=== PATIENT | female | born 1955 | race Caucasian/White ===

== ENCOUNTER → 2017-09-05 07:01 | Outpatient (CLI) | payer OTHER, BC, SELFPAY ==
[2017-09-05 09:19] LABS: Add Manual Diff / Slide Review NO; Eosinophils Percent Auto 2.3 % (2-4); Hemoglobin 15.3 g/dL (12.0-16.0); Lymphocytes Percent Auto 30.1 % (25-40); Mean Corpuscular HGB Conc 33.9 % (30-36); Mean Corpuscular Hemoglobin 28.9 PG (26-34); Mean Corpuscular Volume 85.3 fL (80-100); Monocytes Percent Auto 8.1 % (3-14); Neutrophils Absolute Auto 3700 /uL (3000-5900); Neutrophils Percent Auto 58.5 % (50-75); Platelet Count 242 X10^3/uL (150-400); Red Blood Cell Count 5.28 X10^6/uL (4.0-5.2); Red Cell Distribution Width 13.3 % (11.6-14.8); White Blood Cell Count 6.4 X10^3/uL (4.5-11.0)
[2017-09-05 09:38] LABS: Alanine Aminotransferase 33 IU/L (9-52); Albumin 4.3 g/dL (3.5-5.0); Albumin Globulin Ratio 1.4 (1.0-2.8); Alkaline Phosphatase 94 U/L (38-126); Aspartate Aminotransferase 36 IU/L (14-36); BUN Creatinine Ratio 15.7 (6-22); Bilirubin Total 1.2 mg/dL (0.2-1.3); Blood Urea Nitrogen 11 mg/dL (7-17); Calcium 9.2 mg/dL (8.4-10.2); Carbon Dioxide 31 mmol/L (22-32); Chloride 96 mmol/L (98-107); Cholesterol 187 mg/dL (140-199); Estimated Glomerular Filt Rate > 60.0 mL/min (>60); Glucose 86 mg/dL (80-110); HDL Cholesterol 63 mg/dL (40-60); HEMOLYSIS < 15 (0-50); LDL Cholesterol Calculated 109 mg/dL (<100); Potassium 4.6 mmol/L (3.4-5.1); Sodium 136 mmol/L (137-145); Total Protein 7.3 g/dL (6.3-8.2); Triglycerides 75 mg/dL (35-150)
[2017-09-05 10:07] LABS: Testosterone 28.1 ng/dL (5.71-77.0)
[2017-09-05 10:10] LABS: Thyroid Stimulating Hormone 5.09 uIU/mL (0.47-4.68)
[2017-09-11 14:31] LABS: Estrogen 97.2 pg/mL
== END ==
PROVIDERS: Visit Provider Family Medicine
DX: Z78.0 Asymptomatic menopausal state (principal)
CPT/HCPCS: 36415; 80053; 80061; 82672; 84403; 84443; 85025

== ENCOUNTER → 2017-09-16 06:49 | Outpatient (CLI) | payer OTHER, BC, SELFPAY ==
[2017-09-16 10:14] LABS: Free T3, Triiodothyronine Free 3.01 pg/mL (2.77-5.27); Free T4, Direct Thyroxine 1.28 ng/dL (0.78-2.19)
[2017-09-16 10:28] LABS: Thyroid Stimulating Hormone 5.32 uIU/mL (0.47-4.68)
== END ==
PROVIDERS: PCP Physician Assistant Medical; Visit Provider Family Medicine
DX: R79.89 Other specified abnormal findings of blood chemistry (principal)
CPT/HCPCS: 36415; 84439; 84443; 84481

== ENCOUNTER → 2020-01-21 08:17 | Outpatient (CLI) | payer BC, SELFPAY ==
[2020-01-21 08:52] LABS: Appearance Urine UA CLEAR; Bilirubin Urine UA NEGATIVE (NEGATIVE); Color Urine UA YELLOW; Glucose Urine UA NEGATIVE (Negative); Ketones Urine UA NEGATIVE (NEGATIVE); Leukocyte Esterase Urine UA NEGATIVE (NEGATIVE); Nitrite Urine UA NEGATIVE (Negative); Occult Blood Urine UA TRACE-LYSED (Negative); Protein Urine UA TRACE (Negative); Specific Gravity Urine UA 1.015 (1.000-1.035); Urobilinogen Urine UA 0.2 E.U./dL (0.2)
[2020-01-21 08:55] LABS: Add Manual Diff / Slide Review NO; Basophils Absolute Auto 100 /uL (0-100); Basophils Percent Auto 0.7 % (0-2); Eosinophils Absolute Auto 100 /uL (0-450); Hematocrit 40.5 % (36-46); Hemoglobin 13.8 g/dL (12.0-16.0); Lymphocytes Absolute Auto 1400 /uL (1100-4500); Lymphocytes Percent Auto 14.9 % (25-40); Mean Corpuscular HGB Conc 34.1 % (30-36); Mean Corpuscular Hemoglobin 28.9 PG (26-34); Mean Corpuscular Volume 84.8 fL (80-100); Monocytes Absolute Auto 700 /uL (0-900); Monocytes Percent Auto 8.1 % (3-14); Neutrophils Absolute Auto 6900 /uL (1500-7000); Neutrophils Percent Auto 75.3 % (50-75); Platelet Count 273 X10^3/uL (150-400); Red Blood Cell Count 4.77 X10^6/uL (4.0-5.2); Red Cell Distribution Width 12.6 % (11.6-14.8); White Blood Cell Count 9.2 X10^3/uL (4.5-11.0)
[2020-01-21 09:38] LABS: Alanine Aminotransferase 11 IU/L (<35); Albumin 3.7 g/dL (3.5-5.0); Albumin Globulin Ratio 1.3 (1.0-2.8); Alkaline Phosphatase 105 U/L (38-126); Aspartate Aminotransferase 24 IU/L (14-36); BUN Creatinine Ratio 13.2 (6-22); Blood Urea Nitrogen 7 mg/dL (7-17); Calcium 8.8 mg/dL (8.4-10.2); Carbon Dioxide 33 mmol/L (22-32); Chloride 97 mmol/L (98-107); Cholesterol 141 mg/dL (140-199); Estimated Glomerular Filt Rate > 60.0 mL/min (>60); Globulin 2.8 g/dL (1.7-4.1); Glucose 103 mg/dL (80-110); HDL Cholesterol 50 mg/dL (40-60); HEMOLYSIS < 15 (0-50); LDL Cholesterol Calculated 77 mg/dL (<100); Potassium 3.9 mmol/L (3.4-5.1); Sodium 133 mmol/L (137-145); Total Protein 6.5 g/dL (6.3-8.2); Triglycerides 69 mg/dL (35-150)
[2020-01-21 10:00] LABS: TSH w/ Reflex to FT4 4.13 uIU/mL (0.47-4.68)
== END ==
PROVIDERS: Family Provider Physician Assistant Medical; PCP Registered Nurse; Referring Provider Registered Nurse; Visit Provider Registered Nurse
DX: Z00.00 Encounter for general adult medical examination without abnormal findings (principal); E78.5 Hyperlipidemia, unspecified; R79.89 Other specified abnormal findings of blood chemistry
CPT/HCPCS: 36415; 80053; 80061; 81003; 84443; 85025

== ENCOUNTER → 2020-02-02 10:43 | Outpatient (CLI) | payer BC, SELFPAY ==
--- NOTE | 2020-02-02 10:46 | DI.RAD.S_ITS ---
PROCEDURE: XR KNEE RT 3V INDICATIONS: CHRONIC left knee pain TECHNIQUE: 3 views of the knee were acquired. COMPARISON: Left knee same day reviewed. FINDINGS: Bones: No fractures or dislocations, and the degree of degenerative osteoarthritic change as indicated by joint space narrowing at the medial and lateral compartment is symmetric with that on the left. The patellofemoral joint also shows prominent lateral facet patellofemoral joint space narrowing, but not to the same severity as that seen on the left.. No suspicious bony lesions. Soft tissues: No joint effusion. No suspicious soft tissue calcifications. IMPRESSION: Near equivalent degenerative osteoarthritis at the right knee compared to the left knee except at the lateral facet of the patellofemoral joint where a lesser degree of degeneration is present. Dictated by: Ricardo Espana M.D. on 02/02/2020 at 11:23 Approved by: Ricardo Espana M.D. on 02/02/2020 at 11:24
--- NOTE | 2020-02-02 10:46 | DI.RAD.S_ITS ---
PROCEDURE: XR KNEE LT 3V INDICATIONS: CHRONIC LEFT KNEE PAIN TECHNIQUE: 3 views of the knee were acquired. COMPARISON: None. FINDINGS: Bones: No fractures or dislocations but there is [id number] degenerative knee joint space narrowing at the lateral/medial compartment respectively, and moderately severe to severe such degeneration at the lateral facet of the patellofemoral joint.. No suspicious bony lesions. Soft tissues: No joint effusion. No suspicious soft tissue calcifications. IMPRESSION: There is quite severe osteoarthritis at the patellofemoral joint lateral facet, but only mild lateral and moderate medial joint space narrowing on the frontal projection. No trauma found. Dictated by: Ricardo Espana M.D. on 02/02/2020 at 11:22 Approved by: Ricardo Espana M.D. on 02/02/2020 at 11:23
== END ==
PROVIDERS: Family Provider Physician Assistant Medical; PCP Registered Nurse; Referring Provider Registered Nurse; Visit Provider Registered Nurse
DX: M25.562 Pain in left knee (principal); M25.561 Pain in right knee; M17.0 Bilateral primary osteoarthritis of knee; G89.29 Other chronic pain
CPT/HCPCS: 73562

== ENCOUNTER → 2020-03-28 10:37 | Outpatient (CLI) | payer BC, SELFPAY | PROVIDERS: Family Provider Physician Assistant Medical; PCP Registered Nurse; Referring Provider Registered Nurse; Visit Provider Internal Medicine Rheumatology | DX: Z20.5 Contact with and (suspected) exposure to viral hepatitis (principal); M05.9 Rheumatoid arthritis with rheumatoid factor, unspecified | CPT/HCPCS: 36415; 87517 ==

== ENCOUNTER → 2020-09-02 11:02 | Outpatient (CLI) | payer BC, SELFPAY ==
--- NOTE | 2020-09-02 11:05 | DI.RAD.S_ITS ---
PROCEDURE: XR KNEE RT 3V INDICATIONS: BILATERAL KNEE PAIN TECHNIQUE: 3 views of the knee were acquired. COMPARISON: [facility], , XR KNEE RT 3V, 02/02/2020, 10:51. FINDINGS: Bones: No fractures or dislocations. No suspicious bony lesions. Tricompartment degenerative arthritis with tricompartment osteophytes, moderate medial compartment joint space loss, and lateral patellofemoral joint space obliteration. Findings are progressive. Soft tissues: No joint effusion. No suspicious soft tissue calcifications. IMPRESSION: Progressive tricompartment degenerative arthritis as described above. Dictated by: Kole Espinoza M.D. on 09/02/2020 at 13:29 Approved by: Kole Espinoza M.D. on 09/02/2020 at 13:31
--- NOTE | 2020-09-02 11:05 | DI.RAD.S_ITS ---
PROCEDURE: XR KNEE LT 3V INDICATIONS: BILATERAL KNEE PAIN TECHNIQUE: 3 views of the knee were acquired. COMPARISON: [facility], CR, XR KNEE LT 3V, 02/02/2020, 10:51. [facility], CR, XR KNEE RT 3V, 02/02/2020, 10:51. FINDINGS: Bones: No fractures or dislocations. No suspicious bony lesions. Progressive tricompartment degenerative arthritis with increase in medial compartment joint space loss, moderate, and increase in lateral patellofemoral joint space loss, with obliteration of the joint space. Soft tissues: [id number] joint effusion. No suspicious soft tissue calcifications. IMPRESSION: Interval progression of degenerative arthritis of the knee as described above. Dictated by: Kole Espinoza M.D. on 09/02/2020 at 13:32 Approved by: Kole Espinoza M.D. on 09/02/2020 at 13:33
== END ==
PROVIDERS: Family Provider Physician Assistant Medical; PCP Registered Nurse; Referring Provider Internal Medicine Rheumatology; Visit Provider Internal Medicine Rheumatology
DX: M25.561 Pain in right knee (principal); M25.562 Pain in left knee; M17.0 Bilateral primary osteoarthritis of knee
CPT/HCPCS: 73562

== ENCOUNTER → 2021-01-04 18:55 | Outpatient (CLI) | payer BC, SELFPAY ==
--- NOTE | 2021-01-04 | DI.MRI.S_ITS ---
PROCEDURE: MR KNEE RT WO CON INDICATIONS: pain in right knee TECHNIQUE: Noncontrast sagittal PD fast spin echo and T2 fast spin echo with fat saturation, sagittal 3-D FLASH with fat saturation; coronal T1 spin echo and PD fast spin echo with fat saturation, and axial PD fast spin echo with fat saturation through the knee. COMPARISON: [facility], CR, XR KNEE LT 3V, 09/02/2020, 11:25. FINDINGS: Image quality: Excellent. Menisci: Oblique tear involving posterior horn of medial meniscus extending to inferior articulating surface is seen. Peripheral displacement of medial meniscus bowing medial collateral ligament is also noted. There is no evidence of focal lateral meniscal tear. The meniscal root ligaments appear intact. Cruciate ligaments: The anterior and posterior cruciate ligaments appear intact. Medial structures: Low-grade proximal MCL sprain/partial-thickness tear is seen. The posterior oblique ligament, semimembranosus tendon insertions, oblique popliteal ligament, and meniscocapsular junction appear intact. Visualized portions of the pes anserinus tendons appear normal. No abnormal bursal fluid. Lateral structures: There is low-grade proximal LCL sprain/partial-thickness tear. The long and short heads of the biceps femoris tendon appear intact. The popliteus tendon appears normal; the popliteofibular ligament appears intact. The posterosuperior and anteroinferior popliteomeniscal fascicles appear intact. The arcuate and fabellofibular ligaments appear intact, on either side of the lateral inferior geniculate artery. Iliotibial band appears normal. Anterior structures: Distal quadriceps tendinosis at its superior patellar insertion is seen. Proximal patellar tendinosis at its inferior patellar insertion is also noted. Patellar alignment is normal. No femoral trochlear dysplasia or ventral trochlear prominence. No edema in the infrapatellar fat pad. Bones and cartilage: Moderate tricompartmental osteoarthritis and chondromalacia is noted most prominent in medial femoral tibial compartment. Mild marrow edema involving lateral periphery of lateral femoral condyle and proximal tibia is seen without discrete fracture line. Mild oedema involving antral medial periphery of proximal tibia extending to anterior aspect of medial tibial plateau is also seen without discrete fracture line. Joint space: There is large amount of joint fluid, no gross intra-articular loose body. Lobulated popliteal cyst is seen measures up to 4.4 x 2.1 x 3.8 cm in size. Thickened synovial lining is seen suggestive of mild synovitis. IMPRESSION: 1. Moderate tricompartmental osteoarthritis and chondromalacia more prominent in medial femoral tibial compartment. No fracture or dislocation. Suggestion of bony contusion involving medial and lateral periphery of right knee as above. 2. Moderate to large joint effusion with thickened synovial lining suggestive of synovitis. No definite intra-articular loose body. Moderate size popliteal cyst as above. 3. Oblique tear involving posterior horn of medial meniscus extending to inferior articulating surface. No definite focal lateral meniscal tear. 4. Low-grade proximal MCL and LCL sprain/partial-thickness tear. Cruciate ligaments are intact. 5. Distal quadriceps and proximal patellar tendinosis at their patellar insertions. Dictated by: Wander Lim M.D. on 01/05/2021 at 9:02 Approved by: Wander Lim M.D. on 01/05/2021 at 9:06
== END ==
PROVIDERS: Family Provider Physician Assistant Medical; PCP Registered Nurse; Referring Provider Internal Medicine Rheumatology; Visit Provider Internal Medicine Rheumatology
DX: M25.561 Pain in right knee (principal); M17.11 Unilateral primary osteoarthritis, right knee; M94.261 Chondromalacia, right knee; M25.461 Effusion, right knee; S83.241A Other tear of medial meniscus, current injury, right knee, initial encounter; M71.21 Synovial cyst of popliteal space [Baker], right knee; S83.411A Sprain of medial collateral ligament of right knee, initial encounter; S83.421A Sprain of lateral collateral ligament of right knee, initial encounter
CPT/HCPCS: 73721

== ENCOUNTER → 2022-05-17 06:53 | Outpatient (CLI) | payer BC, SELFPAY ==
[2022-05-17 09:48] LABS: Alanine Aminotransferase 14 IU/L (<35); Albumin 3.6 g/dL (3.5-5.0); Albumin Globulin Ratio 1.2 (1.0-2.8); Alkaline Phosphatase 121 U/L (38-126); Aspartate Aminotransferase 27 IU/L (14-36); Bilirubin Total 0.8 mg/dL (0.2-1.3); Bilirubin Unconjugated 0.5 mg/dL (0.0-1.1); Globulin 3.1 g/dL (1.7-4.1); HEMOLYSIS < 15 (0-50); Total Protein 6.7 g/dL (6.3-8.2)
[2022-05-17 10:02] LABS: Vitamin D 25 Hydroxy (D3) 47.2 ng/mL (30.0-100.0)
== END ==
PROVIDERS: Family Provider Physician Assistant Medical; PCP Registered Nurse Diabetes Educator; Referring Provider Registered Nurse Diabetes Educator; Visit Provider Registered Nurse Diabetes Educator
DX: E55.9 Vitamin D deficiency, unspecified (principal); R74.8 Abnormal levels of other serum enzymes
CPT/HCPCS: 36415; 80076; 82306

== ENCOUNTER → 2022-12-06 07:53 | Outpatient (CLI) | payer BC, SELFPAY ==
[2022-12-06 08:12] LABS: Hematocrit 38.6 % (36-46); Mean Corpuscular HGB Conc 33.6 % (30-36); Mean Corpuscular Hemoglobin 26.8 PG (26-34); Mean Corpuscular Volume 79.7 fL (80-100); Platelet Count 301 X10^3/uL (150-400); Red Blood Cell Count 4.84 X10^6/uL (4.0-5.2); White Blood Cell Count 8.5 X10^3/uL (4.5-11.0)
[2022-12-06 08:33] LABS: Alanine Aminotransferase 15 IU/L (<35); Albumin 3.6 g/dL (3.5-5.0); Alkaline Phosphatase 105 U/L (38-126); Aspartate Aminotransferase 27 IU/L (14-36); BUN Creatinine Ratio 14.8 (6-22); Bilirubin Total 0.7 mg/dL (0.2-1.3); Blood Urea Nitrogen 8 mg/dL (7-17); Calcium 8.7 mg/dL (8.4-10.2); Carbon Dioxide 28 mmol/L (22-32); Chloride 97 mmol/L (98-107); Cholesterol 156 mg/dL (140-199); Estimated Glomerular Filt Rate > 60 mL/min (>60); Globulin 3.7 g/dL (1.7-4.1); Glucose 90 mg/dL (80-110); HDL Cholesterol 40 mg/dL (40-60); HEMOLYSIS < 15 (0-50); LDL Cholesterol Calculated 100 mg/dL (<100); Potassium 4.5 mmol/L (3.4-5.1); Sodium 132 mmol/L (137-145); Total Protein 7.3 g/dL (6.3-8.2); Triglycerides 80 mg/dL (35-150)
[2022-12-06 08:57] LABS: TSH w/ Reflex to FT4 3.95 uIU/mL (0.47-4.68)
== END ==
PROVIDERS: Family Provider Physician Assistant Medical; PCP Registered Nurse Diabetes Educator; Referring Provider Registered Nurse Diabetes Educator; Visit Provider Registered Nurse Diabetes Educator
DX: E78.5 Hyperlipidemia, unspecified (principal); M25.561 Pain in right knee; M25.562 Pain in left knee; R79.89 Other specified abnormal findings of blood chemistry
CPT/HCPCS: 36415; 80053; 80061; 84443; 85027

== ENCOUNTER → 2022-12-11 10:52 | Outpatient (CLI) | payer BC, SELFPAY ==
--- NOTE | 2022-12-11 10:53 | DI.RAD.S_ITS ---
PROCEDURE: XR HAND LT MIN 3V INDICATIONS: bilateral 1st CMC joint pain TECHNIQUE: 3 views of the hand(s) acquired. COMPARISON: [facility], CR, XR HAND RT MIN 3V, 12/11/2022, 10:56. FINDINGS: Bones: No fractures or dislocations. Advanced degenerative change at the 1st CMC joint with joint space narrowing, subchondral cystic change, and osteophytosis. Similar to the contralateral right hand. Carpal bones are normally aligned. No suspicious bony lesions. Soft tissues: No suspicious soft tissue calcifications. IMPRESSION: Advanced degenerative change at the 1st CMC joint. Dictated by: Teto Curry M.D. on 12/11/2022 at 16:29 Approved by: Teto Curry M.D. on 12/11/2022 at 16:30
--- NOTE | 2022-12-11 10:53 | DI.RAD.S_ITS ---
PROCEDURE: XR HAND RT MIN 3V INDICATIONS: bilateral 1st CMC joint pain TECHNIQUE: 3 views of the hand(s) acquired. COMPARISON: [facility], CR, XR HAND LT MIN 3V, 12/11/2022, 10:56. FINDINGS: Bones: No fractures or dislocations. Advanced degenerative change at the 1st CMC joint with subchondral cystic change, joint space narrowing and osteophytosis. Carpal bones are normally aligned. No suspicious bony lesions. Soft tissues: No suspicious soft tissue calcifications. IMPRESSION: Advanced degenerative change at the 1st CMC joint. Dictated by: Teto Curry M.D. on 12/11/2022 at 16:28 Approved by: Teto Curry M.D. on 12/11/2022 at 16:29
== END ==
PROVIDERS: Family Provider Physician Assistant Medical; PCP Registered Nurse Diabetes Educator; Referring Provider Registered Nurse Diabetes Educator; Visit Provider Registered Nurse Diabetes Educator
DX: M79.641 Pain in right hand (principal); M79.642 Pain in left hand
CPT/HCPCS: 73130

== ENCOUNTER → 2023-12-12 12:11 | Outpatient (CLI) | payer BC, SELFPAY ==
--- NOTE | 2023-12-12 12:12 | DI.RAD.S_ITS ---
PROCEDURE: XR DEXA AXIAL SKELETON INDICATIONS: Asymptomatic menopausal state COMPARISON: None. FINDINGS: Lumbar Spine: Bone mineral density 0.82 g/cm2, T score -2.1 Left Hip: Bone mineral density 0.72 g/cm2, T score -1.9,. Left Femoral Neck: Bone mineral density 0.61 g/cm2, T score -2.1,. Right Hip: Bone mineral density 0.70 g/cm2, T score -2,. Right Femoral Neck: Bone mineral density 0.61 g/cm2, T score -2.2,. Fracture Risk Calculation (when applicable): 10-year fracture risk of a major osteoporotic fracture 17% and of a hip fracture 3.7%. (T score greater or equal to -1.0 to: NORMAL) (T score from -1.1 to -2.4: OSTEOPENIA) (T score less than or equal to -2.5: OSTEOPOROSIS) IMPRESSION: Osteopenia, with fracture risk calculation as above. Follow-up guidelines as follows: Osteoporosis: Consider a repeat DEXA and Vertebral Fracture Assessment (VFA) exam in 2 years or sooner if medically necessary, to reassess this patient's status. Osteopenia: Consider a repeat DEXA in 2-3 years to reassess this patient's status, or if there is a new clinical indication. Normal: Consider a repeat DEXA in 5 years or sooner, or if there is a new clinical indication. All treatment decisions require clinical judgment and consideration of individual patient factors, including patient preferences, comorbidities, previous drug use, risk factors not captured in the FRAX model (e.g., frailty, falls, vitamin D deficiency, increased bone turnover, interval significant decline in bone density ) and possible under- or over-estimation of fracture risk by FRAX. In addition, the NOF Guide recommends that FDA-approved medical therapies be considered in postmenopausal women and men age >= 50 years with a: * Hip or vertebral (clinical or morphometric) fracture * T-score of <=-2.5 at the spine or hip * Ten-year fracture probability by FRAX of >= 3% for hip fracture or >=20% for major osteoporotic fracture. People with diagnosed cases of osteoporosis or at high risk for fracture should have regular bone mineral density tests. For patients eligible for Medicare, routine testing is allowed once every 2 years. The testing frequency can be increased to one year for patients who have rapidly progressing disease, those who are receiving or discontinuing medical therapy to restore bone mass, or have additional risk factors. Dictated by: Rony Posadas M.D. on 12/12/2023 at 15:54 Approved by: Rony Posadas M.D. on 12/12/2023 at 15:55
== END ==
LOC: RAD 12:11
PROVIDERS: Family Provider Physician Assistant Medical; PCP Registered Nurse Diabetes Educator; Referring Provider Registered Nurse Diabetes Educator; Visit Provider Registered Nurse Diabetes Educator
DX: Z00.00 Encounter for general adult medical examination without abnormal findings (principal); M85.89 Other specified disorders of bone density and structure, multiple sites; E55.9 Vitamin D deficiency, unspecified; Z78.0 Asymptomatic menopausal state
CPT/HCPCS: 77080

== ENCOUNTER → 2024-01-30 08:53 | Outpatient (CLI) | payer BC, SELFPAY ==
[2024-01-30 10:26] LABS: Hematocrit 40.8 % (36-46); Hemoglobin 13.5 g/dL (12.0-16.0); Mean Corpuscular HGB Conc 33.1 % (30-36); Mean Corpuscular Hemoglobin 26.8 PG (26-34); Mean Corpuscular Volume 81.1 fL (80-100); Platelet Count 285 X10^3/uL (150-400); Red Blood Cell Count 5.03 X10^6/uL (4.0-5.2); Red Cell Distribution Width 14.6 % (11.6-14.8); White Blood Cell Count 8.2 X10^3/uL (4.5-11.0)
[2024-01-30 10:51] LABS: Alanine Aminotransferase 11 IU/L (<35); Albumin 3.7 g/dL (3.5-5.0); Albumin Globulin Ratio 1.1 (1.0-2.8); Alkaline Phosphatase 114 U/L (38-126); Aspartate Aminotransferase 26 IU/L (14-36); BUN Creatinine Ratio 15.6 (6-22); Bilirubin Total 0.9 mg/dL (0.2-1.3); Blood Urea Nitrogen 10 mg/dL (7-17); Carbon Dioxide 27 mmol/L (22-32); Chloride 100 mmol/L (98-107); Cholesterol 163 mg/dL (140-199); Estimated Glomerular Filt Rate > 60 mL/min (>60); Globulin 3.3 g/dL (1.7-4.1); Glucose 78 mg/dL (80-110); HDL Cholesterol 52 mg/dL (40-60); HEMOLYSIS < 15 (0-50); LDL Cholesterol Calculated 97 mg/dL (<100); Potassium 4.7 mmol/L (3.4-5.1); Sodium 134 mmol/L (137-145); Triglycerides 70 mg/dL (35-150)
[2024-01-30 11:23] LABS: TSH w/ Reflex to FT4 2.57 uIU/mL (0.47-4.68)
[2024-01-30 11:35] LABS: Vitamin D 25 Hydroxy (D3) 70.3 ng/mL (30.0-100.0)
== END ==
PROVIDERS: Family Provider Physician Assistant Medical; PCP Registered Nurse Diabetes Educator; Referring Provider Registered Nurse Diabetes Educator; Visit Provider Registered Nurse Diabetes Educator
DX: Z00.00 Encounter for general adult medical examination without abnormal findings (principal); R79.89 Other specified abnormal findings of blood chemistry; E78.5 Hyperlipidemia, unspecified; E55.9 Vitamin D deficiency, unspecified; M17.0 Bilateral primary osteoarthritis of knee
CPT/HCPCS: 36415; 80053; 80061; 82306; 84443; 85027

== ENCOUNTER → 2024-07-01 10:31 | Outpatient (CLI) | payer BC, SELFPAY | PROVIDERS: Family Provider Physician Assistant Medical; PCP Registered Nurse Diabetes Educator; Visit Provider Registered Nurse Diabetes Educator | DX: N89.8 Other specified noninflammatory disorders of vagina (principal) | CPT/HCPCS: 87210; 87220 ==

== ENCOUNTER → 2025-01-15 14:12 | Outpatient (CLI) | payer BC, SELFPAY ==
--- NOTE | 2025-01-15 14:14 | DI.MG.S_ITS ---
MM screening mammo BI: 01/15/2025. BI-RADS: 1 CLINICAL: 69-year old female for bilateral screening mammogram. Tyrer-Cuzick lifetime risk of 7.9%. No personal or first-degree family history of breast cancer. Current reported family history of breast cancer: paternal aunt. PRIOR EXAMS 05/30/2015. MAMMOGRAPHY TECHNIQUE: 2D and 3D (tomosynthesis) digital mammographic views obtained, with additional images as needed for full coverage. Current study was also evaluated with a Computer Aided Detection (CAD) system. DENSITY C. The breasts are heterogeneously dense, which may obscure small masses. MAMMOGRAPHY FINDINGS Bilateral: No suspicious mass, asymmetry, microcalcification, or other abnormality seen. IMPRESSION: * No evidence of malignancy. RECOMMENDATIONS Bilateral * Annual screening mammography. OVERALL ASSESSMENT CATEGORY BI-RADS-1: Negative. The [employer] recommends annual screening mammography beginning at age 40 for women with average risk of breast cancer. ELECTRONICALLY SIGNED: Donna Kam M.D. on 01/17/2025 at 11:01:47 PM PT Interpreting Station ID: [id number]
== END ==
LOC: MAMMO 14:13
PROVIDERS: Family Provider Physician Assistant Medical; PCP Registered Nurse Diabetes Educator; Referring Provider Registered Nurse Diabetes Educator; Visit Provider Registered Nurse Diabetes Educator
DX: Z12.31 Encounter for screening mammogram for malignant neoplasm of breast (principal); R92.333 Mammographic heterogeneous density, bilateral breasts; Z80.3 Family history of malignant neoplasm of breast
CPT/HCPCS: 77063; 77067

== ENCOUNTER → 2025-02-02 07:44 | Outpatient (CLI) | payer BC, SELFPAY ==
[2025-02-02 08:28] LABS: Hematocrit 42.2 % (36-46); Hemoglobin 14.2 g/dL (12.0-16.0); Mean Corpuscular HGB Conc 33.7 % (30-36); Mean Corpuscular Hemoglobin 27.9 PG (26-34); Mean Corpuscular Volume 82.6 fL (80-100); Platelet Count 251 X10^3/uL (150-400)
[2025-02-02 09:04] LABS: Alanine Aminotransferase 10 IU/L (<35); Albumin 3.9 g/dL (3.5-5.0); Albumin Globulin Ratio 1.2 (1.0-2.8); Alkaline Phosphatase 99 U/L (38-126); Blood Urea Nitrogen 10 mg/dL (7-17); Calcium 8.7 mg/dL (8.4-10.2); Carbon Dioxide 30 mmol/L (22-32); Chloride 99 mmol/L (98-107); Cholesterol 156 mg/dL (140-199); Estimated Glomerular Filt Rate > 60 mL/min (>60); Globulin 3.3 g/dL (1.7-4.1); Glucose 85 mg/dL (70-99); HDL Cholesterol 55 mg/dL (40-60); HEMOLYSIS < 15 (0-50); Potassium 4.3 mmol/L (3.4-5.1); Sodium 135 mmol/L (137-145); Total Protein 7.2 g/dL (6.3-8.2); Triglycerides 85 mg/dL (35-150)
== END ==
PROVIDERS: Family Provider Physician Assistant Medical; PCP Registered Nurse Diabetes Educator; Referring Provider Registered Nurse Diabetes Educator; Visit Provider Registered Nurse Diabetes Educator
DX: M85.89 Other specified disorders of bone density and structure, multiple sites (principal); Z91.89 Other specified personal risk factors, not elsewhere classified; E78.5 Hyperlipidemia, unspecified; R60.0 Localized edema
CPT/HCPCS: 36415; 80053; 80061; 82306; 85027